=== PATIENT | female | born 1945 | race Caucasian/White ===

== ENCOUNTER 2019-09-22 14:28 | Observation (INO) ==
[2019-09-22 15:24] LABS: Basophils # 0.1 K/mcL (0.0-0.2); Eosinophils # 0.1 K/mcL (0.0-0.6); Eosinophils % 1.3 %; Hematocrit 43.1 % (35.3-44.9); Hemoglobin 14.5 g/dL (11.5-15.4); Immature Granulocytes % 0.2 % (0-4); Lymphocytes # 1.9 K/mcL (0.6-4.6); Lymphocytes % 23.5 %; Mean Corpuscular HGB Conc 33.6 g/dL (31.6-35.5); Mean Corpuscular Hemoglobin 30.7 pg (28.0-33.3); Mean Corpuscular Volume 91.1 fL (83.0-100.0); Mean Platelet Volume 10.3 fL (9.4-12.4); Monocytes # 0.4 K/mcL (0.0-1.3); Monocytes % 5.4 %; Neutrophils # 5.6 K/mcL (1.6-8.9); Platelet Count 245 K/mcL (140-400); Red Blood Count 4.73 M/mcL (3.82-4.97); Red Cell Distribution Width 13.6 % (11.5-14.5); Segmented Neutrophils % 68.6 %; White Blood Count 8.2 K/mcL (4.3-11.1)
[2019-09-22 15:25] LABS: VBG HCO3 23 mEq/L (21-27); VBG PCO2 47 mmHg (41-51); VBG PH 7.31 pH Units (7.32-7.42); VBG PO2 41 mmHg (25-50)
[2019-09-22] MEDS ORDERED: Isovue-370 500 ML BOTTLE IVP ONE (15:36)
[2019-09-22 15:46] LABS: Calcium 9.5 mg/dL (8.6-10.3); Magnesium 1.4 mg/dL (1.6-2.6); Potassium 4.8 mEq/L (3.5-5.1)
[2019-09-22 16:00] LABS: Thyroid Stimulating Hormone 1.169 mcIU/mL (0.340-5.600)
[2019-09-22 16:08] LABS: Bilirubin,Urine Negative (Negative); Blood,Urine Negative (Negative); Clarity,Urine Clear (Clear); Color,Urine Yellow (Yellow); Glucose,Urine (UA) Normal (Normal); Ketones,Urine Negative (Negative); Leukocyte Esterase,Urine Moderate (Negative); Nitrite,Urine Negative (Negative); Protein,Urine Negative (Neg-Trace); Specific Gravity,Urine 1.021 (1.010-1.025); Urobilinogen,Urine Normal (Normal)
[2019-09-22 16:10] LABS: Bacteria,Urine None Seen per hpf (None-Few); Hyaline Casts,Urine None Seen per lpf (None-Few); RBC,Urine 0-3 per hpf (0-3); Squamous Epithelial Cell,Urine Many per lpf (None-Few)
[2019-09-22] MEDS ORDERED: Acetaminophen 325 MG TABLET PO PRN (17:26)
[2019-09-22] MEDS ORDERED: Naloxone 0.4 MG/ML INJ IVP PRN (17:26)
[2019-09-22] MEDS ORDERED: Ondansetron 4 MG/2 ML VIAL IVP PRN (17:26)
[2019-09-22] MEDS ORDERED: *HR* Heparin 5,000 UNIT/ML VIAL IVP PRN ×2 (19:20)
[2019-09-22] MEDS ORDERED: *HR* Heparin 5,000 UNIT/ML VIAL IVP ONE (19:20)
[2019-09-22] MEDS ORDERED: Ipratropium/Albuterol Neb 3 ML IH PRN (19:29)
[2019-09-22] MEDS ORDERED: Heparin 25,000 UNIT/250 ML D5W 25,000 UNIT/250 ML IV.SOLN IVC SCH (19:30)
[2019-09-22 20:03] LABS: Hemoglobin 14.5 g/dL (11.5-15.4); Mean Corpuscular HGB Conc 34.5 g/dL (31.6-35.5); Mean Corpuscular Volume 89.9 fL (83.0-100.0); Mean Platelet Volume 10.8 fL (9.4-12.4); Platelet Count 253 K/mcL (140-400); Red Blood Count 4.67 M/mcL (3.82-4.97); Red Cell Distribution Width 13.6 % (11.5-14.5); White Blood Count 5.7 K/mcL (4.3-11.1)
[2019-09-22 20:15] LABS: INR 1.1; Prothrombin Time 12.6 Seconds (9.4-12.1)
[2019-09-22 20:16] LABS: Activated Partial Thrombo Time 23.1 Seconds (26.0-36.0)
[2019-09-22] MEDS: 0.9 % Sodium Chloride 1,000 ML IVC SCH (20:49)
[2019-09-23 03:08] LABS: Basophils % 0.6 %; Eosinophils % 0.4 %; Hematocrit 40.9 % (35.3-44.9); Hemoglobin 13.3 g/dL (11.5-15.4); Immature Granulocytes % 0.1 % (0-4); Lymphocytes # 2.2 K/mcL (0.6-4.6); Lymphocytes % 31.9 %; Mean Corpuscular HGB Conc 32.5 g/dL (31.6-35.5); Mean Corpuscular Hemoglobin 30.4 pg (28.0-33.3); Mean Corpuscular Volume 93.4 fL (83.0-100.0); Mean Platelet Volume 10.8 fL (9.4-12.4); Monocytes # 0.5 K/mcL (0.0-1.3); Monocytes % 7.2 %; Neutrophils # 4.1 K/mcL (1.6-8.9); Platelet Count 234 K/mcL (140-400); Red Blood Count 4.38 M/mcL (3.82-4.97); Red Cell Distribution Width 13.3 % (11.5-14.5); Segmented Neutrophils % 59.8 %; White Blood Count 6.8 K/mcL (4.3-11.1)
[2019-09-23 03:22] LABS: Calcium 9.3 mg/dL (8.6-10.3); Potassium 4.9 mEq/L (3.5-5.1)
[2019-09-23] MEDS ORDERED: Aspirin Enteric Coated 81 MG Tablet PO SCH (09:00)
[2019-09-23] MEDS: 0.9 % Sodium Chloride 1,000 ML IVC SCH (10:03)
[2019-09-23 11:16] VITALS: BP 114/74
[2019-09-25 16:46] LABS: APTT (LE Anticoag) 33 sec (32-48); Diluted Russell Viper Venom 30 sec (33-44); PT (LE-Anticoag) 14.5 sec (12.0-15.5)
[2019-09-26 16:25] LABS: APTT (LE Anticoag) 37 sec (32-48); Diluted Russell Viper Venom 31 sec (33-44); PT (LE-Anticoag) 14.2 sec (12.0-15.5)
[2019-09-29 21:33] LABS: FACV Specimen WHOLE BLOOD
[2019-09-30 08:49] LABS: Fac V Leiden R506Q Mut Result NEGATIVE
== END 2019-09-23 14:36 | disposition home or self-care (01) ==
LOC: 2ANU 14:28 → EMEROOARM 14:28 → SUATTDRO 17:01 → 2ANU 17:49
PROVIDERS: ADMIT Pharmacist; ATTEND Pharmacist